=== PATIENT | male | born 1975 | race Two or more races ===

== ENCOUNTER 2020-05-01 15:52 | Emergency (ER) | payer SELFPAY ==
[~2020-05-01] VITALS: Ht 170.2 cm; Wt 80.4 kg
--- NOTE | 2020-05-01 16:46 | NUR ---
fever (tmax 103), cough, sob (has asthma as well), muscle weakness and loss of taste x 7 days room air sat 95
[2020-05-01 19:04] LABS: BASOPHILS # (AUTO) 0.01 x10^3/uL (0-0.1); BASOPHILS % (AUTO) 0 % (0-1); EOSINOPHILS # (AUTO) 0.03 x10^3/uL (0-0.4); EOSINOPHILS % (AUTO) 1 % (1-7); LYMPHOCYTES # (AUTO) 1.43 x10^3/uL (1-3.4); LYMPHOCYTES % (AUTO) 33 % (22-44); MD NO; MEAN CORPUSCULAR HEMOGLOBIN 29.4 pg (27.5-34.5); MEAN CORPUSCULAR HGB CONC 33.6 g/dL (33.2-36.2); MEAN CORPUSCULAR VOLUME 87.3 fL (81-97); MEAN PLATELET VOLUME 7.8 fL (7.4-10.4); MONOCYTES # (AUTO) 0.46 x10^3/uL (0.2-0.8); MONOCYTES % (AUTO) 11 % (2-9); NEUTROPHILS # (AUTO) 2.39 x10^3/uL (1.8-6.8); NEUTROPHILS % (AUTO) 55 % (42-75); PLATELET COUNT 187 x10^3/uL (130-400); RED BLOOD COUNT 5.29 x10^6/uL (4.38-5.82); RED CELL DISTRIBUTION WIDTH 13.1 % (9.4-14.8)
[2020-05-01 19:17] LABS: ALBUMIN 3.9 g/dL (3.4-5.0); ANION GAP 4 mmol/L (5-15); CALCIUM 9.1 mg/dL (8.5-10.1); CHLORIDE 107 mmol/L (98-107); CREATININE 0.88 mg/dL (0.7-1.3)
[2020-05-01] MEDS ORDERED: CEFDINIR 300 MG CAPSULE PO ONE (19:30)
[2020-05-01] MEDS ORDERED: ACETAMINOPHEN 500 MG TABLET PO ONE (19:30)
[2020-05-01] MEDS ORDERED: AZITHROMYCIN 500 MG TABLET PO ONE (19:30)
[2020-05-01] MEDS ORDERED: CEFDINIR 300 MG CAPSULE ONE (19:44)
[2020-05-01] MEDS ORDERED: ACETAMINOPHEN 500 MG TABLET ONE (19:44)
[2020-05-01] MEDS ORDERED: AZITHROMYCIN 500 MG TABLET ONE (19:44)
[2020-05-01 20:03] VITALS: BP 138/71
== END 2020-05-01 20:25 | disposition home or self-care (01) ==
LOC: ED 20:16
DX: U07.1 COVID-19 (principal); J15.9 Unspecified bacterial pneumonia; R50.9 Fever, unspecified; R05 Cough
CPT/HCPCS: 36415; 71045; 80048; 82040; 85025; 87635; 99284